=== PATIENT | female | born 1975 | race Caucasian/White ===

== ENCOUNTER 2024-02-25 11:20 | Day surgery (SDC) | payer OTHER ==
[~2024-02-25] VITALS: Ht 160 cm; Wt 103.6 kg
[~2024-02-25 11:20] MED LIST: Lactated Ringer's 1,000 ML IV ONE
[2024-02-25] MEDS ORDERED: Amlodipine Bes2.5 MG (13:02)
[2024-02-25] MEDS ORDERED: ATOR80 (13:03)
[2024-02-25] MEDS ORDERED: ESCI10 (13:03)
[2024-02-25] MEDS ORDERED: THERA-D2000 UNIT (13:03)
[2024-02-25] MEDS ORDERED: CIPR500 (13:03)
[2024-02-25] MEDS ORDERED: LEVSOD100 (13:04)
[2024-02-25] MEDS ORDERED: LOSA50 (13:04)
[2024-02-25] MEDS ORDERED: XARELTO20 MG (13:05)
[2024-02-25] MEDS ORDERED: ONDA4ODT (13:05)
[2024-02-25] MEDS ORDERED: Flagyl500 MG (13:05)
[2024-02-25] MEDS ORDERED: Lactated Ringer's 1,000 ML IV ONE (13:35)
== END 2024-02-25 14:40 | disposition home or self-care (01) ==
LOC: ORSCSDS 11:20
PROVIDERS: Internal Medicine Gastroenterology
PROC: 0DBE8ZX Excision of Large Intestine, Via Natural or Artificial Opening Endoscopic, Diagnostic (ICD-10-PCS; principal; 2024-02-25 13:00)
PROC: 0DJ08ZZ Inspection of Upper Intestinal Tract, Via Natural or Artificial Opening Endoscopic (ICD-10-PCS; 2024-02-25 13:00)
DX: K62.5 Hemorrhage of anus and rectum (principal); K58.2 Mixed irritable bowel syndrome; Z80.0 Family history of malignant neoplasm of digestive organs; K30 Functional dyspepsia; R11.2 Nausea with vomiting, unspecified; Z86.73 Personal history of transient ischemic attack (TIA), and cerebral infarction without residual deficits; I63.9 Cerebral infarction, unspecified; K21.9 Gastro-esophageal reflux disease without esophagitis; F41.9 Anxiety disorder, unspecified; I89.0 Lymphedema, not elsewhere classified; K44.9 Diaphragmatic hernia without obstruction or gangrene; E11.9 Type 2 diabetes mellitus without complications; Z79.01 Long term (current) use of anticoagulants; Z79.899 Other long term (current) drug therapy
CPT/HCPCS: 82947; 88305; J7120